=== PATIENT | female | born 1965 ===

== ENCOUNTER 2018-05-15 09:18 | Emergency (ER) | payer OTHER ==
[2018-05-15 09:19] VITALS: BMI 32.5
[2018-05-15] MEDS ORDERED: Oxycodone/Acetaminophen 5/325 mg Tab PO STA (10:00)
[2018-05-15] MEDS ORDERED: Oxycodone/Acetaminophen 5/325 mg Tab ONE (10:07)
--- NOTE | 2018-05-15 10:56 | ED PDOC ---
Lower Extremity Pain/Injury Time Seen by Provider: 05/15/18 09:51 Chief Complaint (Nursing): Lower Extremity Problem/Injury Chief Complaint (Provider): Lower Extremity Problem/Injury History Per: Patient History/Exam Limitations: no limitations Onset/Duration Of Symptoms: Mins (prior to arrival) Current Symptoms Are (Timing): Still Present Additional Complaint(s): 53 year old female, who works as hospital employee, reports a possible mechanical fall when arriving to work today. She rolled her left ankle falling onto her right knee while wearing high heeled wedge boots. Now complains of pain to left ankle and bilateral knees. Initially pain was severe and is now described as a throbbing 12/17. Patient reports recent numbness along her lateral left thigh. She was seen by her PMD last week for the symptoms and is unsure if that contributed to fall today. Denies head injury or other medical complaints. PMD: none provided - Ankle/Foot Description Of Injury: Twisted Past Medical History Reviewed: Historical Data, Nursing Documentation, Vital Signs - Medical History PMH: No Chronic Diseases Denies: Chronic Kidney Disease - Surgical History Surgical History: No Surg Hx - Family History Family History: States: Unknown Family Hx - Immunization History Hx Tetanus Toxoid Vaccination: No Hx Influenza Vaccination: No Hx Pneumococcal Vaccination: No - Home Medications Home Medications: Ambulatory Orders Medication Instructions Recorded Bacitracin OINT 1 applic TP BID #1 tube 12/01/16 traMADol [Ultram] 50 mg PO TID #7 tab 12/01/16 valACYclovir [Valtrex] 1 gm PO TID #21 tab 12/01/16 - Allergies Allergies/Adverse Reactions: Allergies Allergy/AdvReac Type Severity Reaction Status Date / Time No Known Allergies Allergy Verified 05/15/18 09:24 Review of Systems ROS Statement: Except As Marked, All Systems Reviewed And Found Negative Musculoskeletal: Positive for: Leg Pain (bilateral knee pain), Foot Pain (left ankle) Physical Exam - Reviewed Nursing Documentation Reviewed: Yes Vital Signs Reviewed: Yes - Physical Exam Appears: Positive for: Non-toxic, No Acute Distress Head Exam: Positive for: ATRAUMATIC, NORMAL INSPECTION, NORMOCEPHALIC Skin: Positive for: Normal Color, Warm, Dry Eye Exam: Positive for: EOMI, Normal appearance, PERRL Neck: Positive for: Normal, Painless ROM, Supple Cardiovascular/Chest: Positive for: Regular Rate, Rhythm. Negative for: Murmur Respiratory: Positive for: Normal Breath Sounds. Negative for: Respiratory Distress Gastrointestinal/Abdominal: Positive for: Normal Exam Extremity: Positive for: Swelling (swelling and ecchymosis over lateral mallelous with tenderness to palpation of anterior and posterior malleolus; mild swelling to bilateral knees), Other (no pain to palpation of hips). Negative for: Normal ROM (Patient prefers not to attempt to walk because immediatel after injury she needed wheelchair for transport), Deformity (no ecchymosis or deformity to knees) Neurologic/Psych: Positive for: Alert, Oriented. Negative for: Motor/Sensory Deficits - ECG Pulse Ox Interpretation: Normal Medical Decision Making Medical Decision Makin:00 MDM: workup of bilateral knees and left ankle X-rays and Percocet for pain Reassess. 1330 Pt with no fracture or dislocation seen on Xray. Splint placed on L ankle and crutch training provided. Pt to be discharged home with Ibuprofen for pain. Pt to follow up with PMD. Return parameters discussed. ----- Scribe Attestation: Documented by Chloe Dukes acting as a scribe for Sridevi Francis MD Provider Scribe Attestation: All medical record entries made by the Scribe were at my direction and personally dictated by me. I have reviewed the chart and agree that the record accurately reflects my personal performance of the history, physical exam, medical decision making, and the department course for this patient. I have also personally directed, reviewed, and agree with the discharge instructions and disposition. Disposition - Clinical Impression Clinical Impression: Ankle injury, Sprain and strain of ankle - Patient ED Disposition Is Patient to be Admitted: No - Disposition Disposition: Routine/Home Disposition Time: 13:29 Condition: IMPROVED Additional Instructions: Follow up with primary medical doctor. Return to the emergency department if symptoms worsen or if new symptoms develop. Instructions: Ankle Sprain (DC) Forms: [employer] ([place]), [facility] ED School/Work Excuse
--- NOTE | 2018-05-15 11:52 | RAD ---
Date of service: 05/15/2018 PROCEDURE: Left Ankle Radiographs. HISTORY: pain after inversion injury COMPARISON: None available. FINDINGS: BONES: Normal. No fracture. JOINTS: Normal. No osteoarthritis. Ankle mortise maintained. Talar dome intact SOFT TISSUES: Circumferential soft tissue swelling. OTHER FINDINGS: None. IMPRESSION: No acute fracture. Circumferential soft tissue swelling noted.
--- NOTE | 2018-05-15 12:00 | RAD ---
Date of service: 05/15/2018 PROCEDURE: Bilateral Knee Radiographs. HISTORY: BL knee pain COMPARISON: None. FINDINGS: BONES: Right Knee: Normal. No fracture. Left Knee: Normal. No fracture. JOINTS: Right Knee: Normal. No osteoarthritis. Left knee: Normal. No osteoarthritis. SOFT TISSUES: Right Knee: Normal. Left Knee: Normal. JOINT EFFUSION: Right Knee: None. Left Knee: None. OTHER FINDINGS: None. IMPRESSION: Normal radiographs of the knees.
[2018-05-15 13:45] VITALS: RESP 16
[2018-05-15 13:47] VITALS: BP 131/80; PULSE 97; TEMP 98; O2SAT 99
== END 2018-05-15 13:48 | disposition home or self-care (01) ==
LOC: H.ER 09:18
DX: S93.402A Sprain of unspecified ligament of left ankle, initial encounter (principal); M25.561 Pain in right knee; M25.562 Pain in left knee; W19.XXXA Unspecified fall, initial encounter; Y92.89 Other specified places as the place of occurrence of the external cause